=== PATIENT | female | born 1980 | race Caucasian/White ===

== ENCOUNTER 2017-10-14 20:11 | Emergency (ER) | payer MEDICAID ==
[~2017-10-14] VITALS: Ht 165.1 cm; Wt 62.0 kg
[~2017-10-14 20:11] MED LIST: ACET325T14 PO; ALBU18HF INH; ALPR-475 PO; ALPR1TAB6 PO; AMIT25TA PO; AMIT75TA PO; ATOR40TA PO; BECL8.7A6 INH; CITA40TA12 PO; DOCU100C24 PO; DOXE150C PO; GABA100C PO; HYDR1TAB12 PO; IBUP-1222 PO; LEVO15TA6 PO; MELO15TA6 PO; METO10TA2 PO; MIRT15TA PO; MIRT15TA3 PO; OMEP-110 PO; ONDA4TAB13 PO; OXYC-302 PO; OXYC5CAP2 PO; PROP20TA PO; SUMA25TA4 PO; SUMA50TA3 PO; TOPI100T8 PO; TOPI50TA8 PO; ZOLP10TA PO; [UNRECOGNIZED DRUG - OTHER] PO; anti depressant
[2017-10-14] MEDS ORDERED: SODIUM CHLORIDE 0.9% 1,000ML IVBOLUS ONE (20:30)
[2017-10-14] MEDS ORDERED: SODIUM CHLORIDE FLUSH 10ML SYR IVF ONE (20:30)
[2017-10-14 20:39] LABS: MEAN CORPUSCULAR HEMOGLOBIN 32.2 pg (27.0-34.8); MEAN CORPUSCULAR HGB CONC 34.2 g/dL (32.4-35.8); MEAN CORPUSCULAR VOLUME 93.9 fL (80-100); MEAN PLATELET VOLUME 9.9 fL (7.4-10.4); PLATELET COUNT 240 x10^3/uL (130-400); RED BLOOD COUNT 4.16 x10^6/uL (3.82-5.3); RED CELL DISTRIBUTION WIDTH 12.2 % (9.6-15.2)
[2017-10-14 20:47] LABS: ALBUMIN 3.4 g/dL (3.4-5.0); ANION GAP 5 mmol/L (5-15); CALCIUM 8.4 mg/dL (8.5-10.1); CHLORIDE 109 mmol/L (98-107); CREATININE 0.91 mg/dL (0.55-1.02)
[2017-10-14 20:56] LABS: BASOPHILS # (AUTO) 0.06 x10^3/uL (0-0.1); BASOPHILS % (AUTO) 0 % (0-1); EOSINOPHILS # (AUTO) 0.22 x10^3/uL (0-0.4); EOSINOPHILS % (AUTO) 1 % (1-7); LYMPHOCYTES # (AUTO) 2.56 x10^3/uL (1-3.4); LYMPHOCYTES % (AUTO) 15 % (22-44); MD SCAN; MONOCYTES # (AUTO) 0.96 x10^3/uL (0.2-0.8); MONOCYTES % (AUTO) 6 % (2-9); NEUTROPHILS # (AUTO) 13.78 x10^3/uL (1.8-6.8); NEUTROPHILS % (AUTO) 78 % (42-75)
[2017-10-14 21:54] VITALS: BP 100/68
== END 2017-10-14 21:57 | disposition home or self-care (01) ==
LOC: ED 20:57
DX: R55 Syncope and collapse (principal); J45.909 Unspecified asthma, uncomplicated; E78.00 Pure hypercholesterolemia, unspecified; G62.9 Polyneuropathy, unspecified; F17.200 Nicotine dependence, unspecified, uncomplicated; Z85.42 Personal history of malignant neoplasm of other parts of uterus; Z90.49 Acquired absence of other specified parts of digestive tract; Z90.710 Acquired absence of both cervix and uterus
CPT/HCPCS: 36415; 80048; 82040; 85025; 93005; 96360; 99285; J7030

== ENCOUNTER 2017-11-29 16:28 | Emergency (ER) | payer MEDICAID ==
[~2017-11-29] VITALS: Ht 160 cm; Wt 53.1 kg
[2017-11-29 17:18] LABS: BASOPHILS # (AUTO) 0.02 x10^3/uL (0-0.1); BASOPHILS % (AUTO) 0 % (0-1); EOSINOPHILS # (AUTO) 0.08 x10^3/uL (0-0.4); EOSINOPHILS % (AUTO) 1 % (1-7); LYMPHOCYTES # (AUTO) 2.04 x10^3/uL (1-3.4); LYMPHOCYTES % (AUTO) 33 % (22-44); MD NO; MEAN CORPUSCULAR HEMOGLOBIN 31.5 pg (27.0-34.8); MEAN CORPUSCULAR HGB CONC 33.2 g/dL (32.4-35.8); MEAN CORPUSCULAR VOLUME 94.8 fL (80-100); MEAN PLATELET VOLUME 9.9 fL (7.4-10.4); MONOCYTES # (AUTO) 0.42 x10^3/uL (0.2-0.8); MONOCYTES % (AUTO) 7 % (2-9); NEUTROPHILS % (AUTO) 59 % (42-75); PLATELET COUNT 263 x10^3/uL (130-400); RED BLOOD COUNT 4.55 x10^6/uL (3.82-5.3); RED CELL DISTRIBUTION WIDTH 12.9 % (9.6-15.2)
[2017-11-29 17:30] LABS: ALANINE AMINOTRANSFERASE 26 U/L (12-78); ALBUMIN 3.8 g/dL (3.4-5.0); ANION GAP 5 mmol/L (5-15); CALCIUM 8.5 mg/dL (8.5-10.1); CHLORIDE 108 mmol/L (98-107)
[2017-11-29 17:33] LABS: ALKALINE PHOSPHATASE 51 U/L (45-117); BILIRUBIN,TOTAL 0.5 mg/dL (0.2-1.0); CREATININE 0.88 mg/dL (0.55-1.02)
[2017-11-29] MEDS ORDERED: DIPHENHYDRAMINE 50 MG/ML, 1ML ONE (18:51)
[2017-11-29] MEDS ORDERED: KETOROLAC 30 MG/1 ML ONE (18:51)
[2017-11-29] MEDS ORDERED: METOCLOPRAMIDE 5 MG/ML, 2ML ONE (18:51)
[2017-11-29] MEDS ORDERED: SODIUM CHLORIDE 0.9% 1,000ML IVBOLUS ONE (19:00)
[2017-11-29] MEDS ORDERED: SODIUM CHLORIDE FLUSH 10ML SYR IVF ONE (19:00)
[2017-11-29] MEDS ORDERED: KETOROLAC 30 MG/1 ML IVPush ONE (19:00)
[2017-11-29] MEDS ORDERED: DIPHENHYDRAMINE 50 MG/ML, 1ML IVPush ONE (19:00)
[2017-11-29] MEDS ORDERED: METOCLOPRAMIDE 5 MG/ML, 2ML IVPush ONE (19:00)
[2017-11-29] MEDS ORDERED: [UNRECOGNIZED DRUG - OTHER] (19:03)
[2017-11-29 19:40] VITALS: BP 96/60
== END 2017-11-29 20:26 | disposition home or self-care (01) ==
LOC: ED 20:15
DX: G43.001 Migraine without aura, not intractable, with status migrainosus (principal); F17.200 Nicotine dependence, unspecified, uncomplicated; E78.00 Pure hypercholesterolemia, unspecified; I95.9 Hypotension, unspecified
CPT/HCPCS: 36415; 70450; 72125; 80053; 85025; 96361; 96374; 96375; 99285; J1200; J1885; J2765; J7030

== ENCOUNTER 2018-07-01 10:31 | Emergency (ER) | payer MEDICAID ==
[~2018-07-01] VITALS: Ht 160 cm; Wt 53.6 kg
[~2018-07-01 10:31] MED LIST changes: +DOCU-193 PO; -DOCU100C24 PO; -HYDR1TAB12 PO; +HYDR1TAB13 PO; +[UNRECOGNIZED DRUG - OTHER]
[2018-07-01] MEDS ORDERED: ASPIRIN 81 MG TABLET CHEW ONE (10:55)
[2018-07-01] MEDS ORDERED: ASPIRIN 81 MG TABLET CHEW PO ONE (11:00)
[2018-07-01] MEDS ORDERED: DIPHENHYDRAMINE 50 MG/ML, 1ML ONE (11:23)
[2018-07-01] MEDS ORDERED: METOCLOPRAMIDE 5 MG/ML, 2ML ONE (11:23)
[2018-07-01] MEDS ORDERED: KETOROLAC 30 MG/1 ML ONE (11:23)
[2018-07-01] MEDS ORDERED: DIPHENHYDRAMINE 50 MG/ML, 1ML IVPush ONE (11:30)
[2018-07-01] MEDS ORDERED: METOCLOPRAMIDE 5 MG/ML, 2ML IVPush ONE (11:30)
[2018-07-01] MEDS ORDERED: SODIUM CHLORIDE FLUSH 10ML SYR IVF ONE (11:30)
[2018-07-01] MEDS ORDERED: KETOROLAC 30 MG/1 ML IVPush ONE (11:30)
[2018-07-01 11:57] LABS: BASOPHILS # (AUTO) 0.04 x10^3/uL (0-0.1); BASOPHILS % (AUTO) 1 % (0-1); EOSINOPHILS # (AUTO) 0.15 x10^3/uL (0-0.4); EOSINOPHILS % (AUTO) 2 % (1-7); LYMPHOCYTES # (AUTO) 2.22 x10^3/uL (1-3.4); LYMPHOCYTES % (AUTO) 28 % (22-44); MD NO; MEAN CORPUSCULAR HGB CONC 33.8 g/dL (32.4-35.8); MEAN CORPUSCULAR VOLUME 94.5 fL (80-100); MEAN PLATELET VOLUME 10.2 fL (7.4-10.4); MONOCYTES % (AUTO) 6 % (2-9); NEUTROPHILS # (AUTO) 4.93 x10^3/uL (1.8-6.8); NEUTROPHILS % (AUTO) 63 % (42-75); PLATELET COUNT 264 x10^3/uL (130-400); RED BLOOD COUNT 4.55 x10^6/uL (3.82-5.3); RED CELL DISTRIBUTION WIDTH 12.9 % (9.6-15.2)
[2018-07-01 12:06] LABS: ALBUMIN 3.9 g/dL (3.4-5.0); ANION GAP 6 mmol/L (5-15); CALCIUM 9.1 mg/dL (8.5-10.1); CHLORIDE 107 mmol/L (98-107)
[2018-07-01 12:11] LABS: ALANINE AMINOTRANSFERASE 24 U/L (12-78); ALKALINE PHOSPHATASE 50 U/L (45-117); BILIRUBIN,TOTAL 0.2 mg/dL (0.2-1.0); CREATININE 0.79 mg/dL (0.55-1.02); TOTAL PROTEIN 7.1 g/dL (6.4-8.2); TROPONIN I < 0.015 ng/mL (0.000-0.045)
[2018-07-01 12:12] LABS: BILIRUBIN, DIRECT < 0.1 mg/dL (0.1-0.2); BILIRUBIN,INDIRECT 0.1 mg/dL (0.0-2.0)
--- NOTE | 2018-07-01 12:32 | NUR ---
BREAK RN: PT RESTING QUIETLY, NO DISTRESS. STATES "HEADACHE IS GONE" POST MEDS, CONTINUES TO C/O "CHEST IS STILL SORE"; RATES PAIN 7/10. NO DISTRESS NOTED. REMAINS NS ON MONITOR. PT AWARE AWAITING RESULTS.
[2018-07-01 12:59] LABS: MICROSCOPIC NOT IND
[2018-07-01 13:14] LABS: CULTURE INDICATED? NO
[2018-07-01 14:07] VITALS: BP 90/56
--- NOTE | 2018-07-01 14:24 | NUR ---
Patient/Caregiver given discharge instructions and they have confirmed that they understand the instructions. Patient ambulatory with steady gait. PT LEFT WITH ALL PERSONAL BELONGINGS.
== END 2018-07-01 14:38 | disposition home or self-care (01) ==
LOC: ED 14:25
DX: R07.9 Chest pain, unspecified (principal); G43.909 Migraine, unspecified, not intractable, without status migrainosus; F17.200 Nicotine dependence, unspecified, uncomplicated; E78.00 Pure hypercholesterolemia, unspecified; J45.909 Unspecified asthma, uncomplicated; G62.9 Polyneuropathy, unspecified; Z86.19 Personal history of other infectious and parasitic diseases
CPT/HCPCS: 36415; 71045; 80048; 80076; 81003; 82040; 83690; 83880; 84484; 85025; 93005; 96374; 96375; 99284; J1200; J1885; J2765

== ENCOUNTER 2018-12-12 20:34 | Emergency (ER) | payer MEDICAID, OTHER ==
[~2018-12-12] VITALS: Ht 160 cm; Wt 56.0 kg
[2018-12-12 23:26] VITALS: BP 127/64
== END 2018-12-12 23:28 | disposition home or self-care (01) ==
LOC: ED 23:22
DX: J45.901 Unspecified asthma with (acute) exacerbation (principal); J02.9 Acute pharyngitis, unspecified
CPT/HCPCS: 71046; 87081; 87880; 94640; 99284; J7620

== ENCOUNTER 2019-09-29 18:37 | Emergency (ER) | payer MEDICAID ==
[~2019-09-29] VITALS: Ht 160 cm; Wt 56.7 kg
[~2019-09-29 18:37] MED LIST changes: -ALPR-475 PO; +ALPR0.5T7 PO
[2019-09-29] MEDS ORDERED: ONDANSETRON 2MG/ML, 2ML IVPush ONE (19:30)
[2019-09-29] MEDS ORDERED: METOCLOPRAMIDE 5 MG/ML, 2ML IVPush ONE (19:30)
[2019-09-29] MEDS ORDERED: SODIUM CHLORIDE 0.9% 1,000ML IVBOLUS ONE (19:30)
[2019-09-29] MEDS ORDERED: SODIUM CHLORIDE FLUSH 10ML SYR IVF ONE (19:30)
[2019-09-29 19:37] LABS: BASOPHILS # (AUTO) 0.06 x10^3/uL (0-0.1); BASOPHILS % (AUTO) 1 % (0-1); EOSINOPHILS # (AUTO) 0.28 x10^3/uL (0-0.4); EOSINOPHILS % (AUTO) 3 % (1-7); LYMPHOCYTES # (AUTO) 3.43 x10^3/uL (1-3.4); LYMPHOCYTES % (AUTO) 41 % (22-44); MD NO; MEAN CORPUSCULAR HEMOGLOBIN 31.6 pg (27.0-34.8); MEAN CORPUSCULAR HGB CONC 33.5 g/dL (32.4-35.8); MEAN CORPUSCULAR VOLUME 94.3 fL (80-100); MEAN PLATELET VOLUME 10.2 fL (7.4-10.4); MONOCYTES # (AUTO) 0.83 x10^3/uL (0.2-0.8); MONOCYTES % (AUTO) 10 % (2-9); NEUTROPHILS # (AUTO) 3.87 x10^3/uL (1.8-6.8); NEUTROPHILS % (AUTO) 46 % (42-75); PLATELET COUNT 229 x10^3/uL (130-400); RED BLOOD COUNT 4.61 x10^6/uL (3.82-5.3); RED CELL DISTRIBUTION WIDTH 12.3 % (9.6-15.2)
[2019-09-29] MEDS ORDERED: METOCLOPRAMIDE 5 MG/ML, 2ML ONE (19:47)
[2019-09-29 19:48] LABS: ALBUMIN 3.9 g/dL (3.4-5.0); ANION GAP 6 mmol/L (5-15); CALCIUM 9.3 mg/dL (8.5-10.1); CHLORIDE 108 mmol/L (98-107); CREATININE 0.82 mg/dL (0.55-1.02)
[2019-09-29 20:28] VITALS: BP 97/51
== END 2019-09-29 21:23 | disposition home or self-care (01) ==
LOC: ED 19:41
DX: G89.29 Other chronic pain (principal); K31.84 Gastroparesis; R10.13 Epigastric pain; R11.0 Nausea; E78.00 Pure hypercholesterolemia, unspecified; J45.909 Unspecified asthma, uncomplicated; Z90.89 Acquired absence of other organs; Z90.49 Acquired absence of other specified parts of digestive tract; Z90.710 Acquired absence of both cervix and uterus
CPT/HCPCS: 36415; 80048; 82040; 83605; 85025; 96374; 99283; J2765; J7030

== ENCOUNTER 2019-11-02 18:59 | Emergency (ER) | payer MEDICAID ==
[~2019-11-02] VITALS: Ht 160 cm; Wt 57.0 kg
--- NOTE | 2019-11-02 20:06 | NUR ---
PT PRESENTS TO ED WITH ABDOMINAL TENDERNESS AND BLOATING. NAD NOTED AT THIS TIME. RESPIRATIONS EVEN AND UNLABORED. NAUSEA AND VOMIT YESTERDAY.
[2019-11-02] MEDS ORDERED: MORPHINE SULFATE 4 MG/ML, 1ML ONE ×2 (20:09→22:01)
[2019-11-02] MEDS ORDERED: ONDANSETRON 2MG/ML, 2ML ONE (20:09)
[2019-11-02] MEDS: MORPHINE SULFATE 4 MG/ML, 1ML IVPush PRN ×2 (20:18→22:02)
[2019-11-02 20:27] LABS: ALANINE AMINOTRANSFERASE 21 U/L (12-78); ANION GAP 3 mmol/L (5-15); BASOPHILS # (AUTO) 0.03 x10^3/uL (0-0.1); BASOPHILS % (AUTO) 0 % (0-1); CHLORIDE 111 mmol/L (98-107); CREATININE 0.99 mg/dL (0.55-1.02); EOSINOPHILS # (AUTO) 0.25 x10^3/uL (0-0.4); EOSINOPHILS % (AUTO) 2 % (1-7); LYMPHOCYTES % (AUTO) 31 % (22-44); MD NO; MEAN CORPUSCULAR HEMOGLOBIN 31.3 pg (27.0-34.8); MEAN CORPUSCULAR HGB CONC 32.6 g/dL (32.4-35.8); MEAN CORPUSCULAR VOLUME 95.8 fL (80-100); MEAN PLATELET VOLUME 10.2 fL (7.4-10.4); MONOCYTES # (AUTO) 0.78 x10^3/uL (0.2-0.8); MONOCYTES % (AUTO) 8 % (2-9); NEUTROPHILS # (AUTO) 5.98 x10^3/uL (1.8-6.8); NEUTROPHILS % (AUTO) 58 % (42-75); PLATELET COUNT 223 x10^3/uL (130-400); RED CELL DISTRIBUTION WIDTH 12.5 % (9.6-15.2)
[2019-11-02 20:29] LABS: ALKALINE PHOSPHATASE 45 U/L (45-117); BILIRUBIN,TOTAL 0.3 mg/dL (0.2-1.0); TOTAL PROTEIN 7.2 g/dL (6.4-8.2)
[2019-11-02] MEDS ORDERED: ONDANSETRON 2MG/ML, 2ML IVPush ONE (20:30)
[2019-11-02] MEDS ORDERED: SODIUM CHLORIDE FLUSH 10ML SYR IVF ONE (20:30)
[2019-11-02 20:35] LABS: MICROSCOPIC NOT IND
--- NOTE | 2019-11-02 21:14 | NUR ---
PT CHART UP FOR RECHECK. PT LAYING BACK IN BED WATCHING TELEVISION. REPORTS SOME RELIEF FROM ABDOMINAL PAIN, REFLECTED IN VS. AWAITING ERPA.
--- NOTE | 2019-11-02 22:05 | NUR ---
PT REMEDICATED PER EMAR. PT MOANING IN BED, MOVES INDEPENDENTLY TO FIND POSITION OF COMFORT. PT SITTING UP IN BED AWAITING CT.
--- NOTE | 2019-11-02 22:10 | NUR ---
ERPA AWARE OF PT PAIN LEVEL. NO NEW ORDERS. PT CURRENTLY TAKEN TO CT.
--- NOTE | 2019-11-02 22:44 | NUR ---
PT UP FOR RECHECK. ALL IMAGING RETURNED.
--- NOTE | 2019-11-02 23:05 | NUR ---
REPORT TO LAURENCE ROLLINS.
[2019-11-02 23:36] VITALS: BP 113/65
== END 2019-11-02 23:41 | disposition home or self-care (01) ==
LOC: ED 22:37
DX: R10.31 Right lower quadrant pain (principal); R11.2 Nausea with vomiting, unspecified; R35.0 Frequency of micturition; E78.00 Pure hypercholesterolemia, unspecified; J45.909 Unspecified asthma, uncomplicated; Z90.89 Acquired absence of other organs; Z90.49 Acquired absence of other specified parts of digestive tract; Z90.722 Acquired absence of ovaries, bilateral; Z90.710 Acquired absence of both cervix and uterus
CPT/HCPCS: 36415; 74176; 76856; 80053; 81003; 83690; 85025; 96374; 96375; 96376; 99285; J2270; J2405